=== PATIENT | female | born 1960 | race Caucasian/White ===

== ENCOUNTER 2018-07-18 12:14 | Emergency (ER) | payer SELFPAY ==
--- NOTE | 2018-07-18 14:09 | RADIOLOGY REPORT (SQ) ---
EXAM DESCRIPTION: ANKLE RIGHT COMPLETE; FOOT RIGHT COMPLETE COMPLETED DATE/TIME: 07/18/2018 1:35 pm REASON FOR STUDY: fall 3 years ago, pain/edema, never xrayed COMPARISON: No previous right foot and ankle films NUMBER OF VIEWS: Three views. TECHNIQUE: AP, lateral, and oblique radiographic images acquired of the right foot and ankle. LIMITATIONS: None. FINDINGS: MINERALIZATION: There is profound osteopenia throughout the distal tibia and fibula, talus and calcaneus, tarsal bones, and bones of the forefoot. Regional osteopenia this degree could be se en in reflex sympathetic dystrophy or disuse. Comparison left ankle films would be useful to confirm the presence of asymmetric right-sided osteopenia. No acute fracture at the ankle or right foot. No bony malalignment. BONES: No acute fracture or dislocation. No malalignment. JOINTS: No effusions. SOFT TISSUES: No soft tissue swelling. No foreign body. OTHER: No other significant finding. IMPRESSION: Profound osteopenia throughout the right lower extremity from the lower leg through the toes. This could be seen in reflex sympathetic dystrophy. Osteopenia related to disuse is possible. Profound osteopenia could also be seen in myeloma. Findings discussed with Ann Lemons in the [facility] [place]. Comparison left ankle images will be performed. TECHNICAL DOCUMENTATION: JOB ID: [id number] [employer]- All Rights Reserved Reading location - IP/workstation name: [email or web address]
--- NOTE | 2018-07-18 14:09 | RADIOLOGY REPORT (SQ) ---
EXAM DESCRIPTION: ANKLE RIGHT COMPLETE; FOOT RIGHT COMPLETE COMPLETED DATE/TIME: 07/18/2018 1:35 pm REASON FOR STUDY: fall 3 years ago, pain/edema, never xrayed COMPARISON: No previous right foot and ankle films NUMBER OF VIEWS: Three views. TECHNIQUE: AP, lateral, and oblique radiographic images acquired of the right foot and ankle. LIMITATIONS: None. FINDINGS: MINERALIZATION: There is profound osteopenia throughout the distal tibia and fibula, talus and calcaneus, tarsal bones, and bones of the forefoot. Regional osteopenia this degree could be se en in reflex sympathetic dystrophy or disuse. Comparison left ankle films would be useful to confirm the presence of asymmetric right-sided osteopenia. No acute fracture at the ankle or right foot. No bony malalignment. BONES: No acute fracture or dislocation. No malalignment. JOINTS: No effusions. SOFT TISSUES: No soft tissue swelling. No foreign body. OTHER: No other significant finding. IMPRESSION: Profound osteopenia throughout the right lower extremity from the lower leg through the toes. This could be seen in reflex sympathetic dystrophy. Osteopenia related to disuse is possible. Profound osteopenia could also be seen in myeloma. Findings discussed [place] [facility] [place]. Comparison left ankle images will be performed. TECHNICAL DOCUMENTATION: JOB ID: [id number] [employer]- All Rights Reserved Reading location - IP/workstation name: [email or web address]
--- NOTE | 2018-07-18 14:42 | RADIOLOGY REPORT (SQ) ---
EXAM DESCRIPTION: ANKLE LEFT COMPLETE COMPLETED DATE/TIME: 07/18/2018 2:26 pm REASON FOR STUDY: Per radiologist request for comparison COMPARISON: Right foot and ankle films same date NUMBER OF VIEWS: Left ankle Three views. TECHNIQUE: AP, lateral, and oblique radiographic images acquired of the left ankle. LIMITATIONS: None. FINDINGS: MINERALIZATION: There is normal bone density throughout the left ankle and hindfoot. The right-sided profound osteopenia of the distal tibia and fibula, ankle, and foot could be related to reflex sympathetic dystrophy. BONES: No acute fracture or dislocation. No worrisome bone lesions. JOINTS: No effusions. SOFT TISSUES: No soft tissue swelling. No foreign body. OTHER: No other significant finding. IMPRESSION: Normal bone density throughout the left ankle and hindfoot. No fracture. Right-sided profound osteopenia of the distal tibia and fibula, ankle, and foot could be related to r eflex sympathetic dystrophy. TECHNICAL DOCUMENTATION: JOB ID: [id number] [employer]- All Rights Reserved Reading location - IP/workstation name: [email or web address]
--- NOTE | 2018-07-18 15:05 | ER Document Report ---
HPI - HPI Time Seen by Provider: 07/18/18 13:07 Pain Level: 5 Notes: Patient is a 58-year-old female who presents to the's of right ankle pain and swelling. Patient reports this is been ongoing for 3-4 years. Patient reports at that time she fell and injured her ankle but did not seek treatment. Patient states she does not have a primary care provider and has not seen a doctor in many years. Patient denies taking any daily medications. - CONSTITUTIONAL Constitutional: DENIES: Fever, Chills - EENT EENT: DENIES: Sore Throat, Ear Pain, Eye problems - NEURO Neurology: DENIES: Headache, Weakness, Vision blurred, Dizzinesss / Vertigo - CARDIOVASCULAR Cardiovascular: DENIES: Chest pain - RESPIRATORY Respiratory: DENIES: Trouble Breathing, Coughing - GASTROINTESTINAL Gastrointestinal: DENIES: Abdominal Pain, Black / Bloody Stools - URINARY Urinary: DENIES: Dysuria, Urgency - REPRODUCTIVE Reproductive: DENIES: : - MUSCULOSKELETAL Musculoskeletal: REPORTS: Extremity pain - RIGHT ANKLE Past Medical History - General Information source: Patient - Social History Smoking Status: Current Every Day Smoker Frequency of alcohol use: None Drug Abuse: None Family History: Reviewed & Not Pertinent Patient has suicidal ideation: No Patient has homicidal ideation: No - Past Medical History Cardiac Medical History: Reports: Hx Coronary Artery Disease - Peripheral artery disease with stents in her carotid artery and her legs. Neurological Medical History: Reports: Hx Cerebrovascular Accident Renal/ Medical History: Denies: Hx Peritoneal Dialysis Past Surgical History: Reports: Hx Vascular Surgery - Stent x4 - Immunizations Immunizations up to date: No History of Influenza Vaccine for 01/2017 - 06/2017 Season: No Vertical Provider Document - CONSTITUTIONAL Notes: PHYSICAL EXAMINATION: GENERAL: Well-appearing, well-nourished and in no acute distress. HEAD: Atraumatic, normocephalic. EYES: Pupils equal round extraocular movements intact, conjunctiva are normal. ENT: Nares patent NECK: Normal range of motion LUNGS: No respiratory distress Musculoskeletal: Swelling noted to right ankle, cap refill less than 3 seconds, normal motor and sensation distal to area of pain. Tenderness to palpation throughout medial and lateral right ankle. NEUROLOGICAL: Normal speech. PSYCH: Normal mood, normal affect. SKIN: Warm, Dry, normal turgor, no rashes or lesions noted. - INFECTION CONTROL TRAVEL OUTSIDE OF THE [place] IN LAST 30 DAYS: No Course - Re-evaluation Re-evalutation: 07/18/18 15:27 X-ray shows no acute fracture or dislocation, severe osteopenia noted. Radiologist called and wanted comparison films of the opposing ankle. These were obtained and there is no osteopenia on the left side. This was discussed with my attending physician who recommends ordering CBC and CMP to evaluate for possible myeloma. Lab work is unremarkable. Patient will be discharged home in stable condition. Patient and family member encouraged to please follow-up with the [facility], all information was provided to them. - Vital Signs Vital signs: Temp Pulse Resp BP Pulse Ox 98.4 F 81 18 157/100 H 98 07/18/18 12:21 07/18/18 12:21 07/18/18 12:21 07/18/18 12:21 07/18/18 12:21 - Laboratory Result Diagrams: 07/18/18 15:20 07/18/18 15:20 Discharge - Discharge Clinical Impression: Right ankle pain Qualifiers: Chronicity: chronic Qualified Code(s): M25.571 - Pain in right ankle and joints of right foot Osteopenia of ankle Qualifiers: Laterality: right Qualified Code(s): M85.871 - Other specified disorders of bone density and structure, right ankle and foot Condition: Stable Disposition: HOME, SELF-CARE Additional Instructions: Please take acetaminophen or ibuprofen for your ankle pain. Use the crutches as discussed. It is very important that you follow-up with primary care. Referrals: [facility] [Outside] - Follow up as needed
--- NOTE | 2018-07-18 15:18 | ER Document Report ---
Doctor's Note Notes: I personally and independently obtained patient history and examined the patient in conjunction with the APC and agree with the assessment, treatment plan and disposition of the patient as recorded by the APC, and have reviewed the APC's note. HISTORY OF PRESENT ILLNESS: Patient is a 58-year-old female that presents to the emergency department for chief complaint of right ankle pain. Patient has had this pain for approximately 4 years just after that her daughter came in to visit her, and she is apparently been up and taking care of herself, and told her about this pain, so she brought her to the ED, she apparently had an injury about 4 years ago, but never seek medical attention at that time. ROS: Constitutional: Negative for fever. Cardiovascular: Negative for chest pain. Respiratory: Negative for shortness of breath. Gastrointestinal: Negative for vomiting or abdominal pain Musculoskeletal: Positive for right ankle pain. Skin: Negative for rash. Neurological: Negative for weakness or numbness. Other than noted above, the 12 point review of systems was reviewed with the patient and were negative, all pertinent findings are included in the HPI. PHYSICAL EXAMINATION: Vital signs reviewed, nursing noted reviewed. GENERAL: Poor hygiene, and appears mildly malnourished HEAD: Atraumatic, normocephalic. EYES: Eyes appear normal, conjunctiva are normal. ENT: nares patent, oropharynx clear without exudates. Moist mucous membranes. NECK: Normal range of motion, supple without lymphadenopathy LUNGS: Breath sounds clear to auscultation bilaterally and equal. No wheezes rales or rhonchi. HEART: Regular rate and rhythm without murmurs EXTREMITIES: Tenderness to palpation over the right ankle, no gross deformities noted, otherwise extremities are nontender, good range of motion, no pitting or edema. NEUROLOGICAL: No focal neurological deficits. Moves all extremities spontaneously Motor and sensory grossly intact on exam. PSYCH: Normal mood, flat affect SKIN: Warm, Dry, normal turgor, no rashes or lesions noted on exposed skin MEDICAL DECISION MAKING: X-rays of the ankle were obtained, did demonstrate significant osteoporosis in the right ankle, this was compared with x-rays of the left ankle, given the degree, and is concerning for possible reflex sympathetic dystrophy versus myeloma, therefore we obtain blood work, patient had a minimally elevated calcium, and normal renal function, no anemia, which I would not think the patient has multiple myeloma given these laboratory findings, the hypercalcemia which is very minimal is likely related to mild dehydration. Advised follow-up with the primary care. Please review detail APC documentation. *Note is created using voice recognition software and may contain spelling, syntax or grammatical errors. Laboratory 07/18/18 07/18/18 07/18/18 14:00 15:20 15:20 WBC 9.1 RBC 4.40 Hgb 13.5 Hct 38.4 MCV 87 MCH 30.8 MCHC 35.3 RDW 14.3 H Plt Count 385 Seg Neutrophils % 56.6 Lymphocytes % 33.1 Monocytes % 6.0 Eosinophils % 3.2 Basophils % 1.1 Absolute Neutrophils 5.1 Absolute Lymphocytes 3.0 Absolute Monocytes 0.5 Absolute Eosinophils 0.3 Absolute Basophils 0.1 Sodium 138.5 Potassium 4.1 Chloride 100 Carbon Dioxide 28 Anion Gap 11 BUN 17 Creatinine 0.94 Est GFR ( Amer) > 60 Est GFR (Non-Af Amer) > 60 Glucose 136 H POC Glucose 98 Calcium 10.6 H Total Bilirubin 0.6 Direct Bilirubin 0.3 Neonat Total Bilirubin Not Reportable Neonat Direct Bilirubin Not Reportable Neonat Indirect Bili Not Reportable AST 17 ALT 14 Alkaline Phosphatase 86 Total Protein 7.8 Albumin 4.4
[2018-07-18 15:46] LABS: ABSOLUTE BASOPHILS # (AUTO) 0.1 10^3/uL (0.0-0.2); ABSOLUTE EOSINOPHILS # (AUTO) 0.3 10^3/uL (0.0-0.6); ABSOLUTE MONOCYTES (AUTO) 0.5 10^3/uL (0.1-1.4); ABSOLUTE NEUT (AUTO) 5.1 10^3/uL (1.7-8.2); BASOPHILS % (AUTO) 1.1 % (0-2); EOSINOPHILS % (AUTO) 3.2 % (0-6); HEMATOCRIT 38.4 % (36.0-47.0); HEMOGLOBIN 13.5 g/dL (12.0-15.5); LYMPHOCYTES % (AUTO) 33.1 % (13-45); MEAN CORPUSCULAR HEMOGLOBIN 30.8 pg (27.0-33.4); MEAN CORPUSCULAR HGB CONC 35.3 g/dL (32.0-36.0); MEAN CORPUSCULAR VOLUME 87 fl (80-97); PLATELET COUNT 385 10^3/uL (150-450); RED CELL DISTRIBUTION WIDTH 14.3 % (11.5-14.0); SEGMENTED NEUTROPHILS % (AUTO) 56.6 % (42-78); TOTAL CELLS COUNTED % (AUTO) 100 %; WHITE BLOOD COUNT 9.1 10^3/uL (4.0-10.5)
[2018-07-18 16:06] LABS: ALANINE AMINOTRANSFERASE 14 U/L (9-52); ALBUMIN 4.4 g/dL (3.5-5.0); ALKALINE PHOSPHATASE 86 U/L (38-126); ANION GAP 11 (5-19); ASPARTATE AMINO TRANSFERASE 17 U/L (14-36); BILIRUBIN,DIRECT 0.3 mg/dL (0.0-0.4); BILIRUBIN,TOTAL 0.6 mg/dL (0.2-1.3); BLOOD UREA NITROGEN 17 mg/dL (7-20); CALCIUM 10.6 mg/dL (8.4-10.2); CARBON DIOXIDE 28 mmol/L (22-30); CHLORIDE 100 mmol/L (98-107); GLUCOSE 136 mg/dL (75-110); POTASSIUM 4.1 mmol/L (3.6-5.0); SODIUM 138.5 mmol/L (137-145); TOTAL PROTEIN 7.8 g/dL (6.3-8.2)
[2018-07-18 16:31] VITALS: BP 116/63
== END 2018-07-18 16:32 | disposition home or self-care (01) ==
LOC: ER 12:14
DX: M25.571 Pain in right ankle and joints of right foot (principal); G89.29 Other chronic pain; M81.0 Age-related osteoporosis without current pathological fracture; F17.200 Nicotine dependence, unspecified, uncomplicated; I25.10 Atherosclerotic heart disease of native coronary artery without angina pectoris; I73.9 Peripheral vascular disease, unspecified; Z95.820 Peripheral vascular angioplasty status with implants and grafts
CPT/HCPCS: 36415; 80053; 82962; 85025; 99283

== ENCOUNTER 2018-09-04 17:08 | Emergency (ER) | payer SELFPAY ==
--- NOTE | 2018-09-04 18:10 | ER Document Report ---
ED Medical Screen (RME) - General Chief Complaint: Leg Pain Stated Complaint: POSSIBLE LEG/FOOT INFECTION Time Seen by Provider: 09/04/18 17:57 Mode of Arrival: Wheelchair Information source: Patient, Relative Notes: 58-year-old female presented to ED for complaint of pain redness ulcers and swelling to the right leg. She states she was seen on December 12 with ulcers to the right leg. She states she went to the urgent care they put her on antibiotics for couple days. She came back 3 days later to be reexamined. They put on more antibiotics and told her to come back in a week. Sister states that the doctor's office canceled her appointment when he was due and then a week later they canceled that one because they wanted to see another doctor. When she went back the next time the office was closed. She states she went back yesterday and they did an x-ray but they were not able to see the leg good so they wanted her to go to the emergency room get a CAT scan but they did not give her on order for the CAT scan. Sister states they came to the x-ray but the echocardiograph technician told her that that was not an order for CAT scan and she would have to go back to the doctor. She went back today and they have sent her to the emergency room to be evaluated and treated. Patient does have red swollen painful right lower leg. I have consulted Dr. Pratt who stated she should have any IV contrasted CAT scan of the lower leg. I have greeted and performed a rapid initial assessment of this patient. A comprehensive ED assessment and evaluation of the patient, analysis of test results and completion of medical decision making process will be conducted by an additional ED providers. Dictation of this chart was performed using voice recognition software; therefore, there may be some unintended grammatical errors. TRAVEL OUTSIDE OF THE [place] IN LAST 30 DAYS: No - Related Data Allergies/Adverse Reactions: No Known Allergies Allergy (Verified 09/04/18 17:10) Past Medical History - Social History Frequency of alcohol use: None Drug Abuse: None - Past Medical History Cardiac Medical History: Reports: Hx Coronary Artery Disease - Peripheral artery disease with stents in her carotid artery and her legs. Neurological Medical History: Reports: Hx Cerebrovascular Accident Renal/ Medical History: Denies: Hx Peritoneal Dialysis Past Surgical History: Reports: Hx Vascular Surgery - Stent x4 - Immunizations Immunizations up to date: No History of Influenza Vaccine for 01/2017 - 06/2017 Season: No Physical Exam - Vital signs Vitals: Temp Pulse Resp BP Pulse Ox 98.5 F 81 18 157/84 H 97 09/04/18 17:17 09/04/18 17:17 09/04/18 17:17 09/04/18 17:17 09/04/18 17:17 Course - Vital Signs Vital signs: Temp Pulse Resp BP Pulse Ox 98.5 F 81 18 157/84 H 97 09/04/18 17:17 09/04/18 17:17 09/04/18 17:17 09/04/18 17:17 09/04/18 17:17
[2018-09-04 18:44] LABS: ABSOLUTE BASOPHILS # (AUTO) 0.1 10^3/uL (0.0-0.2); ABSOLUTE EOSINOPHILS # (AUTO) 0.4 10^3/uL (0.0-0.6); ABSOLUTE LYMPHOCYTES (AUTO) 4.2 10^3/uL (0.5-4.7); ABSOLUTE MONOCYTES (AUTO) 1.1 10^3/uL (0.1-1.4); ABSOLUTE NEUT (AUTO) 5.4 10^3/uL (1.7-8.2); BASOPHILS % (AUTO) 1.3 % (0-2); EOSINOPHILS % (AUTO) 3.7 % (0-6); HEMATOCRIT 35.3 % (36.0-47.0); HEMOGLOBIN 12.2 g/dL (12.0-15.5); LYMPHOCYTES % (AUTO) 37.4 % (13-45); MEAN CORPUSCULAR HEMOGLOBIN 30.6 pg (27.0-33.4); MEAN CORPUSCULAR HGB CONC 34.5 g/dL (32.0-36.0); MEAN CORPUSCULAR VOLUME 89 fl (80-97); MONOCYTES % (AUTO) 9.6 % (3-13); PLATELET COUNT 486 10^3/uL (150-450); RED BLOOD COUNT 3.99 10^6/uL (3.72-5.28); RED CELL DISTRIBUTION WIDTH 14.7 % (11.5-14.0); TOTAL CELLS COUNTED % (AUTO) 100 %; WHITE BLOOD COUNT 11.2 10^3/uL (4.0-10.5)
[2018-09-04 19:07] LABS: ALANINE AMINOTRANSFERASE 17 U/L (9-52); ALBUMIN 4.4 g/dL (3.5-5.0); ALKALINE PHOSPHATASE 72 U/L (38-126); ANION GAP 9 (5-19); ASPARTATE AMINO TRANSFERASE 17 U/L (14-36); BILIRUBIN,DIRECT 0.3 mg/dL (0.0-0.4); BILIRUBIN,TOTAL 0.4 mg/dL (0.2-1.3); BLOOD UREA NITROGEN 19 mg/dL (7-20); CALCIUM 10.4 mg/dL (8.4-10.2); CARBON DIOXIDE 27 mmol/L (22-30); CHLORIDE 105 mmol/L (98-107); GLUCOSE 81 mg/dL (75-110); POTASSIUM 4.5 mmol/L (3.6-5.0); SODIUM 141.4 mmol/L (137-145); TOTAL PROTEIN 7.8 g/dL (6.3-8.2)
[2018-09-04 19:23] LABS: ERYTHROCYTE SEDIMENTATION RATE 55 mm/hr (0-30)
--- NOTE | 2018-09-04 20:50 | RADIOLOGY REPORT (SQ) ---
CT LOWER EXTREMITY WITH IV CONTRAST HISTORY: Ulcers pain swelling redness and infection COMPARISON: Radiographs from earlier the same day. TECHNIQUE: CT scan of the right foot with IV contrast. This exam was performed according to our departmental dose-optimization program, which includes automated exposure control, adjustment of the mA and/or kV according to patient size and/or use of iterative reconstruction technique. FINDINGS: Generalized osteopenia is present. No acute fracture or dislocation. The joint spaces are preserved. There is no cortical erosion or periosteal reaction to suggest acute osteomyelitis. There is mild soft tissue swelling overlying the right foot. No focal fluid collection or abscess. Muscles and tendons are grossly intact. IMPRESSION: 1. No evidence of osteomyelitis or abscess. 2. Generalized osteopenia and heterogeneous bone marrow pattern. This may be secondary to disuse or neurogenic etiology.
[2018-09-04 21:16] LABS: APPEARANCE,URINE SLIGHTLY-CLOUDY; BILIRUBIN,URINE NEGATIVE (NEGATIVE); COLOR,URINE YELLOW; GLUCOSE, URINE NEGATIVE (NEGATIVE); KETONES,URINE NEGATIVE (NEGATIVE); LEUKOCYTE ESTERASE,URINE NEGATIVE (NEGATIVE); NITRITE,URINE NEGATIVE (NEGATIVE); PROTEIN,URINE NEGATIVE (NEGATIVE); URINE SPECIFIC GRAVITY 1.016; UROBILINOGEN,URINE NEGATIVE mg/dL (<2.0)
--- NOTE | 2018-09-04 22:32 | ER Document Report ---
ED General - General Chief Complaint: Leg Pain Stated Complaint: POSSIBLE LEG/FOOT INFECTION Time Seen by Provider: 09/04/18 17:57 Primary Care Provider: Wound Care [Provider Group] - Follow up in 3-5 days LEAH RONDON DO [ACTIVE STAFF] - Follow up in 3-5 days Mode of Arrival: Wheelchair Notes: Patient is a pleasant 58-year-old female who presents with complaint of 2 ulcerations on the right lower extremity. One is over the distal right leg and one is on the foot. She said they have been there for a long time. She says the one on her leg has decreased in size. Says one on her foot has not really changed. There has not been any redness or swelling around them. She says she is been on antibiotics per primary care doctor for these past. Is not a diabetic. She does not remember any traumatic injury. She has not been referred to wound clinic. She has not seen dermatology about this. She says that she was supposed to get a CT scan per primary care doctor's office. They never arrange for the CT scan to be performed and therefore she called her primary care doctor who told her to come to the ER to have the CT scan performed. She has no other complaints at this time. She denies walking barefooted. She says the only animal she has at home is a cat and it has not sc ratched her. TRAVEL OUTSIDE OF THE [place] IN LAST 30 DAYS: No - Related Data Allergies/Adverse Reactions: No Known Allergies Allergy (Verified 09/04/18 17:10) Past Medical History - General Information source: Patient, Relative - Social History Smoking Status: Current Every Day Smoker Frequency of alcohol use: None Drug Abuse: None Family History: Reviewed & Not Pertinent Patient has suicidal ideation: No Patient has homicidal ideation: No - Past Medical History Cardiac Medical History: Reports: Hx Coronary Artery Disease - Peripheral artery disease with stents in her carotid artery and her legs. Neurological Medical History: Reports: Hx Cerebrovascular Accident Renal/ Medical History: Denies: Hx Peritoneal Dialysis Past Surgical History: Reports: Hx Vascular Surgery - Stent x4 - Immunizations Immunizations up to date: No Review of Systems - Review of Systems Notes: My Normal Review Basic REVIEW OF SYSTEMS: CONSTITUTIONAL : Denies fever, chills, or sweats. Denies recent illness.stion. Denies shortness of breath, difficulty breathing, or wheezing. GASTROINTESTINAL: Denies abdominal pain. Denies nausea, vomiting, or diarrhea. MUSCULOSKELETAL: Denies neck or back pain or joint pain or swelling. SKIN: Ulceration on right lower leg and foot. NEUROLOGICAL: Denies sensory or motor loss. ALL OTHER SYSTEMS REVIEWED AND NEGATIVE. Physical Exam - Vital signs Vitals: Temp Pulse Resp BP Pulse Ox 98.5 F 81 18 157/84 H 97 09/04/18 17:17 09/04/18 17:17 09/04/18 17:17 09/04/18 17:17 09/04/18 17:17 - Notes Notes: General Appearance: Well nourished, alert, cooperative, no acute distress, no obvious discomfort. Well-appearing. Vitals: reviewed, See vital signs table. Eyes: PERRL, EOMI, Conjuctiva clear Extremities: strength 5/5 in all extremities, good pulses in all extremities, patient has approximately 2 to 3 cm ulceration on the right lower leg that has scabbed over and appears to be healing. There is no surrounding erythema or swelling. Patient has a 2 cm ulceration on the right foot. This also appears to be healing without any spreading redness or swelling. Skin: warm, dry, appropriate color, no rash Neuro: speech clear, oriented x 3, normal affect, responds appropriately to questions. Course - Re-evaluation Re-evalutation: 09/05/18 03:55 Patient has 2 small ulcerations which actually appear to be healing. They are both scabbed over and there is no signs of infection and that there is no abnormal drainage and there is no surrounding redness or swelling. CT scan was ordered in triage. CT scan is normal. I informed the patient that she should follow back up with her primary care doctor about potential referral to dermatology for biopsy if these are not healing appropriately. I will also refer her to the wound care clinic. Patient encouraged to return to ER if she has redness or swelling around the ulcerations or if the ulcerations are increasing in size. Patient agrees with plan and will be discharged home. Dictation of this chart was performed using voice recognition software; therefore, there may be some unintended grammatical errors. - Vital Signs Vital signs: Temp Pulse Resp BP Pulse Ox 98.7 F 73 16 127/81 H 98 09/04/18 22:38 09/04/18 22:38 09/04/18 22:38 09/04/18 22:38 09/04/18 22:38 - Laboratory Result Diagrams: 09/04/18 18:28 09/04/18 18:28 Laboratory results interpreted by me: 09/04/18 09/04/18 18:28 18:28 WBC 11.2 H Hct 35.3 L RDW 14.7 H Plt Count 486 H ESR 55 H Calcium 10.4 H Discharge - Discharge Clinical Impression: Skin ulcer Qualifiers: Non-pressure ulcer stage: unspecified non-pressure ulcer stage Qualified Cod e(s): L98.499 - Non-pressure chronic ulcer of skin of other sites with unspecified severity Condition: Good Disposition: HOME, SELF-CARE Additional Instructions: The exact cause of the skin ulceration is not clear. Your CT scan did not show any concerning findings in regards to the area around the skin ulcer. Right now it does not currently look infected in that there is no redness or swelling around the ulceration. Please cover it with a nonstick dry bandages. You can change your dressings every day. Please follow-up with the vehicle controls engineer. Please return to the ER immediately if you have fevers, any redness or swelling spreading from the wound, or if you feel that the wound is worsening. Call Dr. Rondon's office to make an appointment. He is a vehicle controls engineer. Please talk to your primary care doctor about referral to wound care clinic. I have also provided their number. Referrals: Wound Care [Provider Group] - Follow up in 3-5 days LEAH RONDON DO [ACTIVE STAFF] - Follow up in 3-5 days
[2018-09-04 22:39] VITALS: BP 127/81
== END 2018-09-04 22:39 | disposition home or self-care (01) ==
LOC: ER 17:08
DX: L98.499 Non-pressure chronic ulcer of skin of other sites with unspecified severity (principal); F17.200 Nicotine dependence, unspecified, uncomplicated; I25.10 Atherosclerotic heart disease of native coronary artery without angina pectoris; Z86.73 Personal history of transient ischemic attack (TIA), and cerebral infarction without residual deficits
CPT/HCPCS: 36415; 80053; 81001; 85025; 85652; 86141; 99283

== ENCOUNTER 2019-11-03 22:01 | Emergency (ER) | payer MEDICAID ==
[2019-11-03] MEDS ORDERED: CLINDAMYCIN 600 MG/D5W RTU 600 MG/50 ML RTUPB IV ONE (22:37)
[2019-11-03 23:04] LABS: ALBUMIN 4.6 g/dL (3.5-5.0); ALKALINE PHOSPHATASE 123 U/L (38-126); ANION GAP 7 (5-19); ASPARTATE AMINO TRANSFERASE 22 U/L (14-36); BILIRUBIN,DIRECT 0.1 mg/dL (0.0-0.4); BILIRUBIN,TOTAL 0.4 mg/dL (0.2-1.3); BLOOD UREA NITROGEN 28 mg/dL (7-20); CALCIUM 10.3 mg/dL (8.4-10.2); CARBON DIOXIDE 27 mmol/L (22-30); CHLORIDE 104 mmol/L (98-107); GLUCOSE 90 mg/dL (75-110); POTASSIUM 4.5 mmol/L (3.6-5.0); TOTAL PROTEIN 8.9 g/dL (6.3-8.2)
--- NOTE | 2019-11-03 23:19 | RADIOLOGY REPORT (SQ) ---
EXAM DESCRIPTION: XR ANKLE 3 OR MORE VIEWS COMPLETED DATE/TME: 11/03/2019 22:34 CLINICAL HISTORY: 59 years, Female, right ankle wound COMPARISON: CT 09/04/2018 NUMBER OF VIEWS: 3 TECHNIQUE: 3 views right ankle LIMITATIONS: None. FINDINGS: Osteopenia. Negative for acute fracture or dislocation. 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 Pes planus deformity. Mild soft tissue swelling, with soft tissue ulceration medially. No radiographic evidence for underlying acute osteomyelitis.. IMPRESSION: No acute osseous abnormality. 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 Soft tissue swelling. Soft tissue ulceration medially. copyright 2010 [employer]- All Rights Reserved
--- NOTE | 2019-11-03 23:48 | ER Document Report ---
Entered by NELLIE GALVAN SCRIBE 11/03/19 4010 Acting as scribe for:RAFAELA SIMMONS IV, MD ED Wound - General Chief Complaint: Ankle Pain Stated Complaint: REPORTS WOUND ON RIGHT ANKLE Time Seen by Provider: 11/03/19 22:13 Primary Care Provider: AMNA HUTCHINSON MD [ACTIVE STAFF] - Follow up as needed (Call Dr. Siri denson's office 11/04/2019 to arrange appointment to establish care.) RICKY RIOS FNP-C [NO LOCAL MD] - Follow up as needed Mode of Arrival: Medic Information source: Patient, Relative - Sister Notes: This 59 year old female patient with a history of peripheral artery disease brought in by EMS presents to the ED today accompanied by her sister with complaints of a wound infection to her right ankle. Patient states that she has had the wound for the past x1 month; however, she has not had any antibiotics or been seen at a wound care clinic due to not having insurance at that time. Sister reports that now that the patient has insurance, she is seeking medical treatment. She reports that patient had a similar wound to the dorsal surface of her right foot in August 2018 that she was seen here for. Patient states that she moved to [place] shortly after that visit and had a surgery done in October 2018 to her right foot for "vascular problems." Patient moved back to [place] in June 2019. Denies history of diabetes. Denies fever. TRAVEL OUTSIDE OF THE [place] IN LAST 30 DAYS: No - Related Data Allergies/Adverse Reactions: No Known Allergies Allergy (Verified 09/04/18 17:10) Past Medical History - General Information source: Patient - Social History Smoking Status: Never Smoker Cigarette use (# per day): No Chew tobacco use (# tins/day): No Smoking Education Provided: No Frequency of alcohol use: None Drug Abuse: None Family History: Reviewed & Not Pertinent Patient has suicidal ideation: No Patient has homicidal ideation: No - Past Medical History Cardiac Medical History: Reports: Hx Coronary Artery Disease - Peripheral artery disease with stents in her carotid artery and her legs. Neurological Medical History: Reports: Hx Cerebrovascular Accident Past Surgical History: Reports: Hx Vascular Surgery - Stent x4 - Immunizations Immunizations up to date: No Review of Systems - Review of Systems Constitutional: See HPI. denies: Fever EENT: No symptoms reported Cardiovascular: No symptoms reported Respiratory: No symptoms reported Gastrointestinal: No symptoms reported Genitourinary: No symptoms reported Female Genitourinary: No symptoms reported Musculoskeletal: See HPI, Joint pain - Right ankle Skin: See HPI, Other - Wound Hematologic/Lymphatic: No symptoms reported Neurological/Psychological: No symptoms reported -: Yes All other systems reviewed and negative Physical Exam - Vital signs Vitals: Temp Pulse Resp BP Pulse Ox 97.9 F 75 14 210/97 H 99 11/03/19 22:38 11/03/19 22:38 11/03/19 22:38 11/03/19 22:38 11/03/19 22:38 - General General appearance: Alert In distress: None - HEENT Head: Normocephalic, Atraumatic Eyes: Normal Pupils: PERRL - Respiratory Respiratory status: No respiratory distress Chest status: Nontender Breath sounds: Normal Chest palpation: Normal - Cardiovascular Rhythm: Regular Heart sounds: Normal auscultation Murmur: No Friction rub: No Gallop: None auscultated - Abdominal Inspection: Normal Distension: No distension Bowel sounds: Normal Tenderness: Nontender - Abdomen soft Organomegaly: No organomegaly - Back Back: Normal, Nontender - Extremities General upper extremity: Normal inspection Ankle: Other - Ulceration right ankle - Neurological Neuro grossly intact: Yes Orientation: AAOx4 [place] Coma Scale Eye Opening: Spontaneous [place] Coma Scale Verbal: Oriented [place] Coma Scale Motor: Obeys Commands [place] Coma Scale Total: 15 - Psychological Associated symptoms: Normal affect, Normal mood - Skin Skin irregularity: other - 2.5 cm in diameter ulceration noted to right medial malleolus that has a small amount of dried as well as liquified purulent discharge Course - Re-evaluation Re-evalutation: 11/04/19 01:21 Notes of ED MSE discussed with patient. Patient was given form for follow-up with wound clinic. Patient was instructed that a short leg posterior splint would be put on her right ankle and foot and she would be given crutches. Karen ent was instructed not to bear weight on the foot until instructed to do so by caregivers at the wound clinic. All questions were answered prior to discharge. Emergency signs and symptoms, reasons to return to the emergency department discussed with patient. - Vital Signs Vital signs: Temp Pulse Resp BP Pulse Ox 97.9 F 75 14 117/77 99 11/03/19 22:38 11/03/19 22:38 11/03/19 22:38 11/04/19 00:00 11/03/19 22:38 - Laboratory Result Diagrams: 11/03/19 22:09 11/03/19 22:09 Laboratory results interpreted by me: 11/03/19 22:09 BUN 28 H Creatinine 1.34 H Est GFR ( Amer) 49 L Est GFR (MDRD) Non-Af 40 L Calcium 10.3 H Total Protein 8.9 H - Diagnostic Test Radiology reviewed: Reports reviewed Procedures - Immobilization Right Ankle Time completed: 02:00 Pre-Proc Neuro Vasc Exam: Normal Immobilizer type: Posterior ankle Performed by: RN Post-Proc Neuro Vasc Exam: Normal Alignment checked and good: Yes Discharge - Discharge Clinical Impression: Wound of right ankle Qualifiers: Encounter type: initial encounter Qualified Code(s): S91.001A - Unspecified open wound, right ankle, initial encounter Condition: Stable Disposition: HOME, SELF-CARE Instructions: Antibiotic Ointment Protection ([facility]) Additional Instructions: Be certain to call [facility] wound clinic tomorrow, 11/04/2019, to arrange a follow-up appointment for further care of your ankle wound. Do not bear weight on your right leg until instructed to do so by your caregivers at the wound clinic. You are also being given a referral to a primary care physician. Call that office on 11/04/2019 to arrange follow-up appointment to establish care. Return to the Emergency Department without delay if any worse. HOME CARE INSTRUCTIONS & INFORMATION: Thank you for choosing us for your medical needs. We hope you're satisfied with the care you received. After you leave, you must properly care for your problem and, at the same time, observe its progress. Any condition can change. Some illnesses can change rapidly over hours or days. If your condition worsens, return to the Emergency Department or see your physician promptly. ABOUT YOUR X-RAYS AND EKG'S: If you had an EKG or X-rays taken, they have been read by the Emergency Physician. The X-rays and EKG's will also be read by a Radiologist or Assistant Professor Of Radiology within 24 hours. If discrepancies are noted, you will be notified by telephone. Please be certain the ED has a correct telephone number & address where you can be reached. Also, realize that some fractures or abnormalities do not show up on initial X-rays. If your symptoms continue, see your physician. ABOUT YOUR LABORATORY TEST: If you had laboratory tests, the results have been reviewed by the Emergency Physician. Some test results (for example cultures) may not be available for several days. You will be contacted if any test result shows you need additional treatment. Please be certain the ED has a correct telephone number and address where you can be reached. ABOUT YOUR MEDICATIONS: You will receive instructions on how to take your medicine on the prescription label you receive. Additional information may be provided by the Pharmacy. If you have questions afterwards, call the ED for clarification or further instructions. Some prescribed medications may cause drowsiness. Do not perform tasks such as driving a car or operating machinery without consulting your Pharmacist. If you feel you need a refill of pain medication, your condition will need re-evaluation. Please do not call for a refill of any medication. ABOUT YOUR SIGNATURE: Signature of this document acknowledges to followin. Understanding that you received emergency treatment and that you may be released before al medical problems are known or treated. Please be certain the ED has a correct phone number & address where you can be reached. 2. Acknowledgement that you will arrange for follow-up care as recommended. 3. Authorization for the Emergency Physician to provide information to your follow-up Physician in order to maximize your care. AT ANY TIME, IF YOUR SYMPTOMS CHANGE SIGNIFICANTLY OR WORSEN OR YOU DEVELOP NEW SYMPTOMS, RETURN TO THE EMERGENCY DEPARTMENT IMMEDIATELY FOR RE-EVALUATION. OUR GOAL IS TO PROVIDE EXCELLENT MEDICAL CARE! WE HOPE THAT WE HAVE MET YOUR EXPECTATIONS DURING YOUR EMERGENCY DEPARTMENT VISIT AND THAT YOU FEEL YOU HAVE RECEIVED EXCELLENT CARE! Prescriptions: Hydrocodone/Acetaminophen [[place] 5-325 mg Tablet] 1 tab PO Q6HP PRN #15 tablet PRN Reason: pain Clindamycin HCl [Cleocin 150 mg Capsule] 450 mg PO TID 10 Days #90 capsule Referrals: RICKY RIOS FNP-C [NO LOCAL MD] - Follow up as needed AMNA HUTCHINSON MD [ACTIVE STAFF] - Follow up as needed (Call Dr. Hutchinson's office 11/04/2019 to arrange appointment to establish care.) I personally performed the services described in the documentation, reviewed and edited the documentation which was dictated to the scribe in my presence, and it accurately records my words and actions.
[2019-11-03 23:51] LABS: ABSOLUTE BASOPHILS # (AUTO) 0.1 10^3/uL (0.0-0.2); ABSOLUTE EOSINOPHILS # (AUTO) 0.5 10^3/uL (0.0-0.6); ABSOLUTE NEUT (AUTO) 4.7 10^3/uL (1.7-8.2); BASOPHILS % (AUTO) 0.7 % (0-2); EOSINOPHILS % (AUTO) 4.7 % (0-6); HEMATOCRIT 38.6 % (36.0-47.0); HEMOGLOBIN 13.6 g/dL (12.0-15.5); LYMPHOCYTES % (AUTO) 39.2 % (13-45); MEAN CORPUSCULAR HEMOGLOBIN 31.5 pg (27.0-33.4); MEAN CORPUSCULAR HGB CONC 35.3 g/dL (32.0-36.0); MEAN CORPUSCULAR VOLUME 89 fl (80-97); MONOCYTES % (AUTO) 9.7 % (3-13); PLATELET COUNT 418 10^3/uL (150-450); RED BLOOD COUNT 4.32 10^6/uL (3.72-5.28); SEGMENTED NEUTROPHILS % (AUTO) 45.7 % (42-78); TOTAL CELLS COUNTED % (AUTO) 100 %; WHITE BLOOD COUNT 10.2 10^3/uL (4.0-10.5)
[2019-11-04] MEDS ORDERED: HYDROCODONE/ACETAMINOPHEN 5-325 MG TABLET PO ONE (00:12)
[2019-11-04 00:27] VITALS: BP 117/77
== END 2019-11-04 02:01 | disposition home or self-care (01) ==
LOC: ER 22:01
DX: S91.001A Unspecified open wound, right ankle, initial encounter (principal); X58.XXXA Exposure to other specified factors, initial encounter; Z86.73 Personal history of transient ischemic attack (TIA), and cerebral infarction without residual deficits
CPT/HCPCS: 99283; 96365; 36415; 87040; 87070; 87205; 85025; 80053; 73610; 29515; S0077; 87077